=== PATIENT | female | born 1975 | race Caucasian/White ===

== ENCOUNTER → 2019-07-31 11:55 | Outpatient (BNVA) | payer OTHER, SELFPAY | PROVIDERS: Family Provider Family Medicine; PCP Family Medicine; Visit Provider Obstetrics & Gynecology | DX: N92.0 Excessive and frequent menstruation with regular cycle (principal); N94.6 Dysmenorrhea, unspecified | CPT/HCPCS: 84443; 85027 ==

== ENCOUNTER → 2019-08-21 09:46 | Outpatient (BNVA) | payer OTHER, SELFPAY | PROVIDERS: Family Provider Family Medicine; PCP Family Medicine; Referring Provider Obstetrics & Gynecology; Visit Provider Obstetrics & Gynecology | DX: N92.0 Excessive and frequent menstruation with regular cycle (principal) | CPT/HCPCS: 76830 ==

== ENCOUNTER → 2020-03-12 08:52 | Outpatient (BNVA) | payer OTHER, SELFPAY | PROVIDERS: PCP Family Medicine; Visit Provider Internal Medicine | DX: Z11.59 Encounter for screening for other viral diseases (principal) | CPT/HCPCS: 87635 ==

== ENCOUNTER 2020-03-16 08:52 | Observation (INO) | payer OTHER, SELFPAY ==
--- NOTE | 2020-03-12 06:44 | P.ANESASSM_ITS ---
Pre-Anesthetic Assessment Pre-Anesthetic Assessment: Height/Weight: Height 1.7 m Preop Diagnosis: Mennorhagia Proposed Procedure: Operation Date: 03/16/20 07:00 Proposed Procedures p Total Vaginal Hysterectomy 28832 N92.0 N94.6(Not Applicable) - Dickson Cruz MD s Poss Salpingo-Oophorectomy (Vaginal)(Bilateral) - MD quyen Herron EGD(Not Applicable) - Higinio Greene MD Familial anesthetic complications: None Social: Social History: No alcohol and No tobacco Airway: Cervical ROM: WNL MP: 1 Dentition: Full CV/HEM: CV/HEM: Palp GI: GI: GERD (pantoprazole - well controlled) Anesthetic Plan: ASA status: 1 Anesthesia: General Risk of > 500 ml blood loss (7ml/kg in children): No PFSH Anesthesia PFSH: Medical History (Updated 11/19/19 @ 09:42 by Mahogany Nelson LPN) Menorrhagia with regular cycle Has been using OCP's for bleeding control. 08/10/2017: Switched to Sprintec due to PMS symptoms Premenstrual syndrome Significant PMS (especially PMDD). Treated with fluoxetine and OCPs. Surgical History History of tubal ligation (04/26/07) BTL. Performed by Dr. Barney Mcgrath at [facility] in [place], [place]. Family History (Updated 08/02/19 @ 16:10 by Dickson Cruz MD) Grandfather Diabetes Paternal Grandmother Stroke paternal Father Stroke Mother Hypertension Social History Smoking and tobacco status: never smoked Alcohol intake: current Alcohol intake frequency: few times a week Data Anesthesia Cardiac Studies: No Data to Display
[2020-03-12 06:55] VITALS: BMI 23.9
[2020-03-12 12:55] LABS: OR HCG Qualitative Urine Negative (Negative)
[2020-03-16] VITALS (20 sets, daily range): BP systolic 100–148; BP diastolic 59–78; PULSE 55–88; RESP 12–18; TEMP 36.3–36.8; O2SAT 95–100
[2020-03-16] MEDS: ketorolac 30 mg/mL INJ IVP (06:18)
[2020-03-16] MEDS: phenazopyridine 100 mg Tablet 200 MG PO ×2 (06:18→14:33)
[2020-03-16] MEDS: sodium chloride 0.9% 1,000 ML 30 ML IV (06:18)
--- NOTE | 2020-03-16 06:27 | P.ANESUD_ITS ---
Pre-Anesthetic Update Pre-Anesthetic Assessment: Date of Surgery/Procedure: 03/16/20 Preop Jodi gnosis: Menorrhagia, Dysmenorrhea Proposed Procedure: Operation Date: 03/16/20 07:00 Proposed Procedures p Total Vaginal Hysterectomy 48879 N92.0 N94.6(Not Applicable) - Dickson Cruz MD s Poss Salpingo-Oophorectomy (Vaginal)(Bilateral) - Dickson Cruz MD s EGD(Not Applicable) - Higinio Greene MD Any changes to Pre-Anesthetic Assessment?: No Last Intake: Intake Last Liquid Date 03/15/20 Last Liquid Time 20:00 Last Solid Date 03/15/20 Last Solid Time 20:00 Vitals: Temperature 97.3 F L 03/16/20 06:17 Temperature Source Tympanic 03/16/20 06:17 Pulse Rate 87 03/16/20 06:17 Respiratory Rate 18 03/16/20 06:17 Blood Pressure 148/78 03/16/20 06:17 Blood Pressure Mary Anne n 101 03/16/20 06:17 Pulse Oximetry 98 03/16/20 06:17 Oxygen Delivery Me thod 03/16/20 06:17 Exam: Pre-Anes Outpt Exam: alert, oriented x 3, clear to auscultation bilaterally and regular rate & rhythm Cardiac Studies: No Data to Display
--- NOTE | 2020-03-16 06:47 | P.HPUD_ITS ---
Surgery/Procedure H&P Update DATE OF PROCEDURE: March 16, 2020 DATE H&P PERFORMED: 03/12/20 H&P UPDATE INFORMATION: I have reviewed H&P completed within last 30 days, I have examined patient prior to procedure, No changes to prior documentation and H&P is in [facility] EMR on date indicated PREOP DIAGNOSIS: Menorrhagia, Dysmenorrhea PLANNED PROCEDURE: Operation Date: 03/16/20 07:00 Proposed Procedures p Total Vaginal Hysterectomy 09151 N92.0 N94.6(Not Applicable) - Dickson Cruz MD s Poss Salpingo-Oophorectomy (Vaginal)(Bilateral) - Dickson Cruz MD s EGD(Not Applicable) - Higinio Greene MD
[2020-03-16 06:59] LABS: Basophils # 0.1 10^3/uL (0.0-0.1); Basophils % 0.7 %; Eosinophils # 0.1 10^3/uL (0.0-0.8); Eosinophils % 1.2 %; Hematocrit 41.5 % (37.0-47.0); Hemoglobin 13.3 g/dL (11.5-15.3); Lymphocytes # 1.9 10^3/uL (0.8-4.8); Lymphocytes % 20.6 %; Mean Corpuscular Hemoglobin 30.3 pg (28.0-34.0); Mean Corpuscular Volume 94.5 fL (81-99); Mean Platelet Volume 12.4 fL (7.4-10.4); Monocytes # 0.6 10^3/uL (0.2-0.9); Monocytes % 6.1 %; Neutrophils # 6.41 10^3/uL (1.8-7.7); Neutrophils % 71.1 %; Nucleated Red Blood Cells % 0 %; Platelet Count 290 10^3/cmm (130-400); Red Blood Count 4.39 10^6/uL (4.1-5.3); Red Cell Distribution Width 12.9 % (12.1-15.1)
--- NOTE | 2020-03-16 07:28 | SUR.OPER ---
spouse updated of surgical status.
[2020-03-16] MEDS: vasopressin 20 unit/mL INJ INJECTION (07:30)
--- NOTE | 2020-03-16 08:30 | PM.OP ---
Operative Report Date of procedure: March 16, 2020 Pre-op Diagnosis: Menorrhagia, Dysmenorrhea Post-op Diagnosis: Menorrhagia, Dysmenorrhea Procedure Done: Total vaginal hysterectomy Specimens removed/disposition: Uterus, cervix. Surgeon: Dickson Cruz Virtual Recruiter: None Anesthesia: General Estimated blood loss (mL): 50 IV fluids (mL): 600 Urine output (mL): 50 Complications: None Findings: Normal-appearing uterus, tubes, and ovaries. Brief History: Patient is a 45-year-old white female 2, para 2-0-0-2 who presented to the office due to heavy painful bleeding. She had been using control pills for regulation of the bleeding, but continued to have the heavy bleeding. She was using Seasonique and trying to skip cycles with it. The bleeding would start approximately 3 weeks before the scheduled cycle time and she would bleed through the rest the time until she started her actual menses. During the actual menses time she was soaking a tampon and a pad every hour and would still bleed through to her clothing. She was reporting up to quarter sized clots. She was also reporting significant cramping with the bleeding. She had an ultrasound which did not identify any definite cause for the bleeding. Treatment options were discussed. Since she had failed hormonal treatment, patient wished to proceed to hysterectomy. Procedure: Patient was taken to the operating room where general anesthesia was obtained. She was prepped and draped in usual sterile fashion in the dorsal supine position with legs in Maykel style stirrups. Sequential compression boots were placed prior to starting the case. Leone catheter was inserted and exam under anesthesia was performed. She was found to have first to second-degree uterine prolapse. Weighted speculum was placed in the vagina and the cervix was grasped with a single-tooth tenaculum. The cervix was circumferentially injected with dilute Pitressin solution. A circumferential incision was made with a knife and the bladder was bluntly dissected off of the lower uterine segment. Posterior cul-de-sac was sharply entered and the peritoneum tagged to the vaginal mucosa in the midline. Long weighted retractor was placed in the posterior cul-de-sac. The uterosacral ligaments were clamped, cut, and suture ligated with 0 Vicryl suture bilaterally. The cardinal ligament complexes were clamped, cut, and suture ligated with 0 Vicryl suture bilaterally. The bladder was sharply dissected away from the uterus and the anterior cul-de-sac entered. A long right angle retractor was used to elevate the bladder away from the uterus. The remaining portions of the broad ligament were serially clamped, cut, and suture ligated with 0 Vicryl suture bilaterally until the uterus was completely excised. The pedicles were inspected and noted to be hemostatic. Ovaries and tubes were inspected and appeared normal. The posterior edge of the vaginal cuff was oversewn with 0 Vicryl suture in a running locking fashion incorporating the peritoneum to the edge of the cuff. This started from the 3:00 position and extended around to the 9:00 position posteriorly. The vaginal cuff was closed in a vertical fashion using 0 Vicryl suture in an interrupted [id number] fashion. The cardinal ligaments and uterosacral ligaments were tied in the midline using previously held sutures. The cuff was noted to be hemostatic. Patient tolerated the procedure well. Sponge, needle, and instrument counts were correct. DRAINS: Leone catheter POSTOPERATIVE STATUS: The patient was transferred to the recovery room in satisfactory condition
[2020-03-16] MEDS: HYDROmorphone 1 mg/mL INJ 1 mL 0.5 MG IVP (08:41)
--- NOTE | 2020-03-16 08:45 | PM.PACU ---
PACU note Post-Anesthesia Exam: awake and vital signs stable Disposition: admitted
[2020-03-16] MEDS: docusate sodium 100 mg Capsule PO ×2 (09:21→18:04)
[2020-03-16] MEDS: dextrose 5%-lactated ringers 1,000 ML 125 ML IV (09:22)
[2020-03-16] MEDS: morphine 4 mg/mL SDV 1 mL IVP ×2 (10:26→13:01)
[2020-03-16] MEDS: ondansetron 2 mg/ML SDV 2 mL 4 MG IVP (10:27)
[2020-03-16] MEDS: HYDROcodone-acetaminophen 5-325 mg Tablet PO ×2 (12:24→15:39)
--- NOTE | 2020-03-16 18:25 | P.DS_ITS ---
Discharge Providers Date of Admission: 03/16/20 08:52 Date of Discharge: March 16, 2020 Attending Provider at Admission: Dickson Cruz MD Attending Provider at Discharge: Dickson Cruz MD Primary Care Provider: Kvng Soto DO Diagnoses at Discharge Discharge Diagnosis (1) Menorrhagia: Status: Acute Qualifiers: Menorrahagia type: with regular cycle Menorrhagia type: with regular cycle Qualified Code(s): N92.0 - Excessive and frequent menstruation with regular cycle (2) Dysmenorrhea: Status: Acute Reason for Visit Reason for Visit: Menorrhagia, Dysmenorrhea Hospital Course Hospital Course: Patient is a 45 year old, female, 2, para 2-0-0-2 who presented to the office due to heavy painful bleeding. She had been treated with OCP's, but was still having the heavy bleeding. Treatment options had been discussed with her and she wanted to proceed with surgry (See H&P for further history) Patient was admitted to the hospital and had a total vaginal hysterectomy performed. She tolerated the surgery well. She was sent to the floor after [facility] for pain management. She was initially treated with parenteral pain medications. She was switched to oral medications in early afternoon. Leone catheter was removed. By the early evening, she was doing well. She was tolerated liquids without nausea or vomiting. She stated pains were well controlled. She denies shortness of breath or chest pains. She denies lightheadedness or dizziness with ambulation. She denied problems with urination. She was requesting to go home. Physical Exam: See below Plan Discharge to home. Discharge instructions discussed with patient. Patient to follow-up in the office in 2 and 6 weeks following surgery. Physical Exam Const: COMMON NORMALS: no acute distress, average body habitus, alert and well nourished GENERAL APPEARANCE: well developed ORIENTATION/CONSCIOUSNESS: Yes oriented to person, Yes oriented to place and Yes oriented to time GI: COMMON NORMALS: Soft to palpation, No hepatosplenomegaly present and no masses AUSCULTATION: Yes normoactive bowel sounds PALPATION: Yes Soft to palpation, Yes Tenderness to palpation present (GI) (Mild suprapubic tenderness.) and Yes No hepatosplenomegaly present Extremity: COMMON NORMALS: no clubbing, cyanosis or edema and no calf tenderness Neuro: SENSORIUM/ORIENTATION: Yes alert, Yes oriented to person, Yes oriented to place and Yes oriented to time Psych: COMMON NORMALS: normal affect MOOD & AFFECT: Yes euthymic mood Urinary Catheter Management^: Leone: Cath Placed During This Visit: yes, but has since been removed by the nurse Reason for Continuing Indwelling Catheter: Decision to DC Catheter Urinary Catheter Date of Insertion: 03/16/20 Urinary Catheter Time of Insertion: 07:26 Date Urinary Catheter Removed: 03/16/20 Time Urinary Catheter Discontinued: 14:30 Discharge Data Data Completed and Pending: Pending at discharge Category Date Time Status Hemagram Timed Lab 03/17/20 05:00 Uncollected OR HCG Qualitativ e Urine Routine Lab 03/16/20 06:03 Ordered Pathology: Surgic al [PTH] Routine Pth 03/16/20 08:08 Received Labs from last 24 hours 03/16/20 03/16/20 06:07 06:07 WBC 9.0 RBC 4.39 Hgb 13.3 Hct 41.5 MCV 94.5 MCH 30.3 MCHC 32.0 RDW 12.9 Plt Count 290 MPV 12.4 H Neut % (Auto) 71.1 Lymph % (Auto) 20.6 Anson % (Auto) 6.1 Eos % (Auto) 1.2 Baso % (Auto) 0.7 Neut # (Auto) 6.41 Lymph # (Auto) 1.9 Anson # (Auto) 0.6 Eos # (Auto) 0.1 Baso # (Auto) 0.1 Nucleated RBC % (a uto) 0 Nucleated RBCs # 0.0 Blood Type O Positive Rho(D) Type Positive Antibody Screen Negative Vitals: Last Vital Signs Temp 98.0 F 03/16/20 14:00 Pulse 88 03/16/20 16:54 Resp 16 03/16/20 16:49 BP 128/74 03/16/20 14:00 Pulse Ox 95 03/16/20 16:49 Discharge Plan Discharge Patient Disposition: Home Condition: Stable Prescriptions: New hydrocodone-acetaminophen 5-325 mg Tablet 1 - 2 tab PO Q6H PRN (Reason: Moderate To Severe Pain) Qty: 30 RF: 0 Continued pantoprazole [Protonix] 40 mg tablet,delayed release (DR/EC) 40 mg PO DAILY RF: 0 loratadine [Claritin] 10 mg tablet 10 mg PO QDAY RF: 0 fluoxetine 10 mg capsule 10 mg PO QDAY Qty: 90 RF: 4 Discontinued L norgest/e.estradiol-e.estrad [Seasonique] 0.15 mg-30 mcg (84)/10 mcg (7) tablets,dose pack,3 month 1 tab PO QDAY Qty: 91 RF: 3 Discharge Orders: Discharge Order (Routine); Ordered 03/16/20 Ordered By: Dickson Cruz Referrals: Dickson Cruz MD [Physician] - (Follow-up appointments in 2 and 6 weeks) Discharge Diet: Regular Discharge Activity: Limit activity as instructed Patient Instructions: OB Abdominal Surgery - [facility] [place] Activity Restrictions/Additional Instructions: May use axvj-ami-nieplsc ibuprofen 200 mg, 3 tablets four times a day or 4 tablets three times a day, as needed for pain Discharge Attestations Time Spent in Discharge Care*: less than 30 min Quality Metrics Clinical Quality Measures During this hospital stay, did patient experience: None Coding Level of Care Code Acute Multi Care Technician for g Fwd Diagnoses Menorrhagia N92.0 Menorrahagia type: with regular cycle Menorrhagia type: with regular cycle Dysmenorrhea N94.6
== END 2020-03-16 18:50 | disposition home or self-care (01) ==
LOC: OBGYN 08:52
PROVIDERS: Surgery; Admitting Provider Obstetrics & Gynecology; PCP Family Medicine; Visit Provider Obstetrics & Gynecology
PROC: 0DJ08ZZ Inspection of Upper Intestinal Tract, Via Natural or Artificial Opening Endoscopic (ICD-10-PCS; CPT 43235; 2020-03-16 07:00)
DX: D39.0 Neoplasm of uncertain behavior of uterus (principal); N92.0 Excessive and frequent menstruation with regular cycle; N94.6 Dysmenorrhea, unspecified
CPT/HCPCS: 58260; 12345; 36415; 43235; 84703; 85025; 86850; 86900; 87086; 88307; 96360; 96361; 96372; 96374; 96375; G0378; J0131; J0690; J1170; J1885; J2250; J2270; J2405; J2704; J2710; J3010; J3490; J7030

== ENCOUNTER → 2020-04-21 11:29 | Outpatient (BNVA) | payer OTHER, SELFPAY | PROVIDERS: PCP Family Medicine; Visit Provider Family Medicine | DX: Z11.59 Encounter for screening for other viral diseases (principal); Z20.828 Contact with and (suspected) exposure to other viral communicable diseases | CPT/HCPCS: 87635 ==

== ENCOUNTER 2020-05-25 15:11 | Outpatient (CLI) | payer OTHER, SELFPAY ==
--- NOTE | 2020-05-25 15:17 | MM_ITS ---
WS: [id number] BILATERAL SCREENING DIGITAL MAMMOGRAM WITH CAD HISTORY: SCREENING COMPARISON: 05/06/2019 and 04/30/2018 Bilateral CC and MLO views submitted. Computer aided detection analyzed. Breast composition: The breasts are heterogeneously dense, which may obscure small masses. No suspici ous masses, microcalcifications or architectural distortion. Benign calcifications in each breast. MM/[id number] IMPRESSION: BI-RADS: 2-Benign FOLLOW UP: 1 Year Follow-up
== END 2020-05-25 15:12 | disposition home or self-care (01) ==
LOC: RADSHAW 15:15
PROVIDERS: PCP Family Medicine; Visit Provider Family Medicine
DX: Z12.31 Encounter for screening mammogram for malignant neoplasm of breast (principal)
CPT/HCPCS: 77067

== ENCOUNTER 2021-06-22 14:47 | Outpatient (CLI) | payer OTHER, SELFPAY ==
--- NOTE | 2021-06-22 14:58 | MM_ITS ---
WS: [id number] BILATERAL SCREENING DIGITAL MAMMOGRAM WITH CAD HISTORY: SCREENING COMPARISON: 05/25/2020 and 05/06/2019 and 04/30/2018 Bilateral CC and MLO views submitted. Computer aided detection analyzed. Breast composition: The breasts are heterogeneously dense, which may obscure small masses. No suspici ous masses, microcalcifications or architectural distortion. Benign calcifications in each breast. MM/[id number] IMPRESSION: BI-RADS: 2-Benign FOLLOW UP: 1 Year Follow-up
== END 2021-06-22 14:48 | disposition home or self-care (01) ==
PROVIDERS: PCP Family Medicine; Visit Provider Family Medicine
DX: Z12.31 Encounter for screening mammogram for malignant neoplasm of breast (principal)
CPT/HCPCS: 77067

== ENCOUNTER 2022-09-26 15:05 | Outpatient (CLI) | payer OTHER, SELFPAY ==
--- NOTE | 2022-09-26 15:28 | MM_ITS ---
WS: [id number] BILATERAL 3D TOMOSYNTHESIS DIGITAL SCREENING MAMMOGRAPHY WITH CAD CLINICAL INFORMATION: SCREENING HISTORY: Screening mammogram. No current complaints. COMPARISON: None. TECHNIQUE: Bilateral CC and MLO views. FINDINGS: The breasts are composed of heterogeneous fibroglandular density tissue, which can limit the detectio n of small underlying mass lesions. No suspicious mass, asymmetry, calcifications, or architectural d istortion. No evidence of malignancy. Punctate and lucent centered calcifications. Stable clustered c alcifications RIGHT breast. MM/[id number] IMPRESSION: BI-RADS: 2-Benign FOLLOW UP: 1 Year Follow-up Recommend return to annual screening mammography.
== END 2022-09-26 15:06 | disposition home or self-care (01) ==
PROVIDERS: PCP Family Medicine; Visit Provider Family Medicine
DX: Z12.31 Encounter for screening mammogram for malignant neoplasm of breast (principal)
CPT/HCPCS: 77063; 77067

== ENCOUNTER 2023-11-14 14:49 | Outpatient (CLI) | payer OTHER, SELFPAY ==
--- NOTE | 2023-11-14 14:54 | MM_ITS ---
WS: [id number] Bilateral screening 3D tomosynthesis digital mammogram, 11/14/2023 Clinical Data: SCREENING Comparison: 09/26/2022, 06/22/2021, 05/25/2020, 05/06/2019, 04/30/2018, 04/27/2017, 04/21/2016, 03/26/20 15. Findings: The breast parenchymal pattern shows heterogeneous density. No spiculated masses or clustered calcifi cations are seen. There are no secondary signs of carcinoma. MM/[id number] Impression: 1. Negative bilateral mammogram unchanged. 2. Recommend annual screening mammograms. BIRADS: 1-Negative FOLLOW UP: 1 Year Follow-up The CAD order checker was used.
== END 2023-11-14 14:50 | disposition home or self-care (01) ==
LOC: RAD 14:49
PROVIDERS: PCP Clinical Nurse Specialist Adult Health; Visit Provider Family Medicine
DX: Z12.31 Encounter for screening mammogram for malignant neoplasm of breast (principal)
CPT/HCPCS: 77063; 77067